=== PATIENT | male | born 1965 | race Caucasian/White ===

== ENCOUNTER 2020-02-13 07:18 | Day surgery (SDC) | payer OTHER, SELFPAY ==
[2020-02-06 14:17] VITALS: BMI 26.1
--- NOTE | 2020-02-12 09:09 | P.CONAN_ITS ---
Documented by User: Gaby Lviingston 02/12/20 09:10 HPI - Anesthesia Eval Consult details Narrative: 54yo M for Colonoscopy [facility], [facility] Past Medical History Medical History Abdominal pain Cervical radiculopathy Hand paresthesia HTN (hypertension) Nausea Social History Social History Advance Directives: No Advance Directives Information Provided: No Advance Directives on File: No Meds Allergies Allergy/AdvReac Type Severity Reaction Status Date / Time No Known Allergies Allergy Verified 02/13/20 07:50 [No Known Allergies*] Exam Exam Date and Time: February 12, 2020 0909 Height,Weight and Vital Signs: Height 5 ft 5 in Weight 71.214 kg Pertinent Lab Results Pertinent Lab Results: Laboratory Tests 09/22/19 09/22/19 11:06 11:06 WBC 7.2 Hgb 14.5 Hct 43.3 Plt Count 141 L D Sodium 140 Potassium 4.0 Chloride 103 BUN 8 L Creatinine 0.98 Assessment and Plan Assessment Anesthesia Assessment: Chart Reviewed Documented by User: Natalee Hernandez 02/13/20 07:56 [facility] Past Medical History Medical History Abdominal pain Cervical radiculopathy Hand paresthesia HTN (hypertension) Nausea Social History Social History Advance Directives: No Advance Directives Information Provided: No Advance Directives on File: No Meds Allergies Allergy/AdvReac Type Severity Reaction Status Date / Time No Known Allergies Allergy Verified 02/13/20 07:50 [No Known Allergies*] Exam Airway Mallampati Class: II TM Dist: >3cm Neck ROM: Full Loose/Missing/Broken Teeth: Upper (8,12,13,14,15,16) Heart: RRR Lungs: CTA
[2020-02-13 07:33] VITALS: BMI 25.7
[2020-02-13 07:35] VITALS: BP 148/121; PULSE 99; RESP 18; TEMP 36.1; O2SAT 97
[2020-02-13 07:45] VITALS: BP 158/98
[2020-02-13] MEDS: Lactated Ringers 1,000 ML 100 ML IVCONT (07:56)
--- NOTE | 2020-02-13 07:56 | HO.ANESPROP2 ---
[facility] Past Medical History Medical History Abdominal pain Cervical radiculopathy Hand paresthesia HTN (hypertension) Nausea Social History Social History Advance Directives: No Advance Directives Information Provided: No Advance Directives on File: No Meds Allergies Allergy/AdvReac Type Severity Reaction Status Date / Time No Known Allergies Allergy Verified 02/13/20 07:50 [No Known Allergies*] Exam Exam Date and Time: February 13, 2020 0756 Height,Weight and Vital Signs: Height 5 ft 5 in Weight 70.307 kg Last Vital Signs Temp 97 F 02/13/20 07:35 Pulse 99 02/13/20 07:35 Resp 18 02/13/20 07:35 BP 158/98 H 02/13/20 07:45 Pulse Ox 97 02/13/20 07:35 Assessment and Plan Assessment Anesthesia Assessment: Anesthesia Plan Discussed and Smoking Cess. Discussed Final Anesthetic Review NPO: Yes ASA Class: II Final Preanesthetic Review: No Changes in Pt Med Stat, Meds/Allgs Chart Reviewed, Consent Obtained/Reviewed and Anes Risks/Benef Reviewed Patient Risk: Low Procedure Risk: Low Anesthetic Plan Anesthetic Plan: MAC: Disposition: Standard PACU
--- NOTE | 2020-02-13 08:26 | MHC.SHP ---
Pre-Procedural Eval Section B Chief Complaint: SCREENING Relevant Family History (Specify if Yes): No Relevant Social History: None Present Medications: see Short Stay Collaborative assessment Medical History: Significant History (back pain, depression) History of Previous Operations: No relevant previous surgery Allergies: Allergies Allergy/AdvReac Type Severity Reaction Status Date / Time No Known Allergies Allergy Verified 02/13/20 07:50 [No Known Allergies*] Review of Systems Sugical H&P ROS: Negative: Constitution, Cardiovascular, Respiratory, Neurological, Psychiatric, Hem-Onc, Allergic/Immunologic, Gastrointestinal, Genitourinary, Musculoskeletal, Integumentary, Endocrine and Eyes/Ears/Nose/Throat Exam Surgical H&P Exam: Normal: HEENT, Normal: Heart, Normal: Lungs, Normal: Extremities, Normal: Abdomen, Normal: Skin and Normal: Neurological Plan Diagnosis/Plan: Unchanged Patient has been examined and remains a candidate for the planned procedure
--- NOTE | 2020-02-13 09:03 | P.OP_ITS ---
Operative Note Operative Note Date of Service: 02/13/20 Narrative: Operative Information Procedure Description: Colonoscopy COLONOSCOPY Instrument: Olympus variable stiffness pediatric scope 190L Colonoscopy Monitoring: Vital signs and clinical assessment, continuous EKG monitoring, Pulse oximetry, Carbon Dioxide monitoring and blood pressure monitoring were done throughout the procedure. Colon withdrawal time was 10 minutes. Procedure: The patient was placed in the left lateral decubitis position and pre-procedure medications were administered. After a digital rectal examination of the ano-rectum, the video colonoscope was inserted into the rectum and advanced through the colon to the cecum/TI. The colonoscope was slowly withdrawn in a retrograde panoramic fashion and the colon mucosa was carefully examined including a retroflexed view of the rectum. Findings and interventions are described below. Procedure Difficulty: Findings: Terminal Ileum-normal Cecum:normal Ascending Colon: normal Transverse Colon -normal, diminutive polyp about 3-4 mm removed with forceps Descending Colon:normal Sigmoid Colon: normal Rectum: Retroflexion with moderate sized internal hemorrhoids, grade I Anorectum - normal Colon preparation: [place] Bowel Preparation Scale Right colon; 2 Transverse colon: 2 Left colon; 3 (0 = Unprepared colon segment with mucosa not seen due to solid stool that cannot be cleared. 1 = Portion of mucosa of the colon segment seen, but other areas of the colon segment not well seen due to staining, residual stool and/or opaque liquid. 2 = Minor amount of residual staining, small fragments of stool and/or opaque liquid, but mucosa of colon segment seen well. 3 = Entire mucosa of colon segment seen well with no residual staining, small fragments of stool or opaque liquid) Impression and Post Procedure Diagnosis: polyp internal hemorrhoids Plan: High fiber diet leaflet Avoid straining at stool, epsom salts and sitz bath, anusol supps or cream prn Repeat Colonoscopy in 5-7 years if adenoma polyp, 10 yrs if hyperplastic or ear lier if clinically indicated Above findings were reviewed with the patient and relevant handouts were provided if indicated.
--- NOTE | 2020-02-13 09:03 | PM.OP ---
Brief Operative Note Date of Service: 02/13/20 Pre-op diagnosis: colon screen Post-op diagnosis: same Procedure: see op note Surgeon: Mario Stuart MD Anesthesia: MAC Estimated blood loss (mL): 0 Condition: stable Disposition: PACU
[2020-02-13 09:07] VITALS: BP 106/62; PULSE 85; RESP 16; TEMP 37.1; O2SAT 92
[2020-02-13 09:23] VITALS: BP 120/69; PULSE 74; RESP 18; TEMP 37.1; O2SAT 99
== END 2020-02-13 09:52 | disposition home or self-care (01) ==
PROVIDERS: PCP Nurse Practitioner Family; Visit Provider Internal Medicine Gastroenterology
PROC: 0DJD8ZZ Inspection of Lower Intestinal Tract, Via Natural or Artificial Opening Endoscopic (ICD-10-PCS; CPT 45378; principal; 2020-02-13 08:30)
DX: Z12.11 Encounter for screening for malignant neoplasm of colon (principal); D12.3 Benign neoplasm of transverse colon; K64.0 First degree hemorrhoids
CPT/HCPCS: 45380; 88305

== ENCOUNTER 2020-08-31 09:32 | Outpatient (REF) | payer OTHER, SELFPAY ==
[2020-08-31 10:29] LABS: Alanine Aminotransferase 13 U/L (0-40); Albumin Level 4.8 g/dL (3.5-5.0); Alkaline Phosphatase 86 U/L (39-117); Anion Gap 13 (12-20); Aspartate Amino Transferase 14 U/L (5-37); Bilirubin Total 1.3 mg/dL (0.0-1.0); Blood Urea Nitrogen 10 mg/dL (9-16); Calcium 9.7 mg/dL (8.4-10.2); Carbon Dioxide 28 mmol/L (22-29); Chloride 106 mmol/L (96-108); Cholesterol 194 mg/dL; Estimated Glomerular Filt Rate > 60; Glucose Random 96 mg/dL (60-115); HDL Cholesterol 69 mg/dL; LDL Cholesterol Calculated 112 mg/dl; Potassium 4.6 mmol/L (3.3-5.1); Sodium 142 mmol/L (135-145); Total Protein 7.5 g/dL (6.5-8.0); Triglycerides 67 mg/dL
[2020-08-31 10:49] LABS: TSH reflex Free T4 0.31 uIU/mL (0.32-4.0)
[2020-08-31 11:40] LABS: Free T4 (Free Thyroxine) 0.94 ng/dL (0.71-1.85)
[2020-09-04 15:12] LABS: Testosterone, Total 455 ng/dL (250-1100)
== END 2020-08-31 09:33 | disposition home or self-care (01) ==
LOC: HO.LAB 09:32
PROVIDERS: PCP Nurse Practitioner Family; Visit Provider Nurse Practitioner Family
DX: I10 Essential (primary) hypertension (principal)
CPT/HCPCS: 36415; 80053; 80061; 84403; 84439; 84443

== ENCOUNTER 2023-02-10 13:52 | Outpatient (AMB) | payer BC, SELFPAY ==
--- NOTE | 2023-02-10 13:57 | MHC.PC.OV ---
Vital Signs 02/10/23 14:02 Weight 168 lb BP 130/80 Blood Pressure Location Rt brachial Position Sitting Pulse 65 Pulse Source Pulse Oximeter Pulse Oximetry (%) 96 Oxygen Delivery Method Room Air Intake Visit Reasons: Annual PE Intake Note: Patient here for physical exam and would like to talk about getting an xray on right knee and right elbow- no known injuries. Allergies No Known Allergies [No Known Allergies*] Allergy (Verified 02/10/23 14:03) Medication List - Last Reconciled 02/10/23 by LENCHO Henderson sildenafil (Viagra) 50 mg PO DAILY PRN 10 days Tobacco use date assessed: 02/10/23 Dental Screening Dental Screen Date: 02/10/23 Did you have a dental visit in the last 12 months?: No Did you have a dental problem in the last 6 months where you did not have access to dental care?: No Was dental information given to patient?: Patient has dentist HPI Annual PE HPI Details Pt is here for a PE. Will order labs. Colon screen is up to date. Due for PSA, will order. Denies dribbling with urination, weak stream, and frequent nocturia. [facility] Medical History (Updated 02/10/23 @ 14:12 by LENCHO Henderson) Cervical neck pain with evidence of disc disease Abdominal pain Nausea Hand paresthesia HTN (hypertension) Cervical radiculopathy Surgical History No pertinent past surgical history Family History Father No problems noted. Mother Diabetes mellitus Brother No problems noted. Sister No problems noted. Social History Housing: Apartment Alcohol intake: former Year quit: 2019 Patient Tobacco Use Status: Former Tobacco user Tobacco use type: Cigarette Years Smoked: 10 years ago e-Cigarette/Vaping Use: Currently Using Current occupational status: employed Cognitive needs: No Hearing needs: No Vision needs: No Questionnaire PHQ-9 Over the last 2 weeks, how often have you been bothered by any of the following problems? 1. Little interest or pleasure in doing things: not at all 2. Feeling down, depressed, or hopeless: not at all 3. Trouble falling or staying asleep, or sleeping too much: not at all 4. Feeling tired or having little energy: not at all 5. Poor appetite or overeating: not at all 6. Feeling bad about yourself - or that you are a failure or have let yourself or your family down: not at all 7. Trouble concentrating on things, such as reading the newspaper or watching television: not at all 8. Moving or speaking so slowly that other people could have noticed. Or the opposite - being so fidgety or restless that you have been moving around a lot more than usual: not at all 9. Thoughts that you would be better off or of hurting yourself in some way: not at all Total score: 0 Depression Screening Interpretation: Negative Depression Screening Done: Yes 29807 - PHQ-9 Billing: Yes Source: Developed by Drs. Arturo Degroot, Alison Vazquez, Jose Madsen and colleagues, with an educational miguel from [employer]. Thrive Questionnaire Date Thrive assessed: 02/10/23 What is your living situation today?: I choose not to answer this question Within the past 12 months, did the food you bought not last and you didn't have the money to get more?: I choose not to answer this question Within the past 12 months, did you worry whether your food would run out before you got money to buy more?: I choose not to answer this question Do you have trouble paying for medicines?: I choose not to answer this question Do you have trouble getting transportation to medical appointments?: I choose not to answer this question Do you have trouble paying your heating and electricity bill?: I choose not to answer this question Do you have trouble taking care of your child, family member or friend?: I choose not to answer this question Do you have trouble with day-to-day activities such as bathing, preparing meals, shopping, managing finances, etc.?: I choose not to answer this question Are you currently unemployed and looking for a job?: I choose not to answer this question Are you interested in more education?: I choose not to answer this question AUDIT C Alcohol Use Questionnaire (AUDIT-C) 1. How often do you have a drink containing alcohol?: Never 3. How often do you have six or more drinks on one occasion?: Never Total Score: 0 Score Reviewed/Action Taken: No ZOHRA-7 AMB Questionnaire ZOHRA-7 Date ZOHRA - 7 assessed: 02/10/23 Feeling nervous, anxious, or on edge: 0 = Not at all Not being able to stop or control worryin = Not at all Worrying too much about different things: 0 = Not at all Trouble relaxin = Not at all Being so restless that it is hard to sit still: 0 = Not at all Becoming easily annoyed or irritable: 0 = Not at all Feeling afraid as if something awful might happen: 0 = Not at all Total ZOHRA-7 score (0-4 normal; 5-9 mild; 10-14 moderate; 15-21 severe): 0 Source: Developed by Drs. Arturo Degroot, Alison Vazquez, Jose Madsen and colleagues, with an educational miguel from [employer]. ZOHRA-7 Assessment Billing ZOHRA-7 Assessment Tool: ZOHRA-7 Assessment 44544 Review of Systems Const Denies chills and Denies fever(s) Eyes Denies blurry vision ENT Denies vertigo, Denies dizziness and Denies sore throat Card Denies chest pain at rest, Denies chest pain with activity, Denies diaphoresis, Denies dyspnea and Denies dyspnea on exertion Resp Denies cough, Denies dyspnea, Denies dyspnea on exertion and Denies wheezing GI Denies abdominal pain, Denies melena, Denies hematochezia, Denies constipation, Denies diarrhea and Denies loose stools Denies hematuria Musc Denies numbness and Denies tingling Skin/Breast Denies lesions Neuro Denies vertigo, Denies dizziness, Denies numbness and Denies tingling Psych Denies anxiety, Denies depression, Denies homicidal ideation, Denies suicidal ideation and Denies other (substance abuse) Aller/Immun Denies wheezing Physical exam (Primary Care) Vital Signs: Last Vital Signs Pulse 65 02/10/23 14:02 BP 130/80 02/10/23 14:02 Pulse Ox 96 02/10/23 14:02 Oxygen Delivery Method Room Air 02/10/23 14:02 Tobacco/Smoking Status: Tobacco use Status Tobacco use date assessed 02/10/23 02/10/23 14:06 Patient Tobacco Use Status Former Tobacco user 02/10/23 13:59 Tobacco use type Cigarette 02/10/23 13:59 e-Cigarette/Vaping Use Currently Using 02/10/23 13:59 PHQ-9: PHQ-9 Score PHQ-9: Total score 0 02/10/23 14:33 Depression Screening Interpretation: Negative Thrive Assessment: Date of Thrive Assessment Date Thrive assessed 02/10/23 02/10/23 14:33 Const General: cooperative Nutritional Appearance: well nourished Orientation/consciousness: patient oriented x3 HENMT Head: Yes normal to inspection, Yes normocephalic and Yes atraumatic Ears: TM's normal bilaterally Eyes General: appearance normal, both eyes and all related structures Alignment and Position: alignment normal and position normal Neck Neck: Yes normal visual inspection and Yes no lymphadenopathy Thyroid: Thyroid normal Resp Effort & Inspection: normal respiratory effort Auscultation: clear to auscultation bilaterally Cardio Rate: regular rate Rhythm: regular rhythm Heart sounds: S1 normal heart sound present, S2 normal heart sound present and no murmurs GI Palpation (GI): Soft to palpation and nontender Auscultation: normal bowel sounds Male General Exam: Yes normal external exam Penis: normal penis Scrotum: scrotum normal, testes descended bilaterally and no inguinal hernias Testes: no testicular mass Skin Rashes: no rashes Neuro General: patient oriented x3, moves all extremities, no focal motor deficits and deep tendon reflexes 2+ bilaterally Romberg Test: Negative Psych Appearance: grossly normal Mental Status: mental status grossly normal Speech and movement: Normal speech and movement present Affect: normal affect Attitude: cooperative Thought process: Normal thought process present Thought content: Normal thought content present Insight: Good insight present (Psych) Judgement: Good judgement present (Psych) Assessment and Plan Assessment & Plan (1) Physical exam: Code(s): Z00.00 - Encounter for general adult medical examination without abnormal findings Plan: Labs ordered (2) Screening for prostate cancer: Code(s): Z12.5 - Encounter for screening for malignant neoplasm of prostate Plan: PSA ordered Plan The patient agreed to the use of a medical policy specialist for this encounter. Scribed for LENCHO Sylvester by poornima Guzman scribe, on 02/10/2023 at 14:15 EST. Orders: Orders TSH reflex Free T4 Today Z00.00 - Encounter for general adult medical examination without abnormal findings Prostate Specific Antigen Scr Today Z12.5 - Encounter for screening for malignant neoplasm of prostate Complete Blood Count Auto Diff Today Z00.00 - Encounter for general adult medical examination without abnormal findings Comprehensive [place]. Panel Fast Today Z00.00 - Encounter for general adult medical examination without abnormal findings UA CC w/rflx Micro + Cult Today Z00.00 - Encounter for general adult medical examination without abnormal findings Lipid Panel Today Z00.00 - Encounter for general adult medical examination without abnormal findings Coding Level of Care Code Est Pt Prev Care 40-64y(79819) Diagnoses Physical exam Z00.00 Screening for prostate cancer Z12.5 Additional Codes ZOHRA-7 Assessment Billing - ZOHRA-7 Assessment Tool: ZOHRA-7 Assessment [id number] ([id number])
[2023-02-10 14:02] VITALS: BP 130/80; PULSE 65; O2SAT 96
== END 2023-02-10 15:24 | disposition home or self-care (01) ==
PROVIDERS: PCP Nurse Practitioner Family; Visit Provider Nurse Practitioner Family
DX: Z00.00 Encounter for general adult medical examination without abnormal findings (principal); Z12.5 Encounter for screening for malignant neoplasm of prostate
CPT/HCPCS: 99396

== ENCOUNTER 2023-03-11 08:37 | Outpatient (REF) | payer BC, SELFPAY ==
[2023-03-11 11:14] LABS: MANUAL DIFF FLAG NO
[2023-03-11 11:31] LABS: Basophils Absolute Auto 0.1 X10*3/uL (0.0-0.2); Basophils Percent Auto 0.6 % (0-2); Eosinophils Absolute Auto 0.2 X10*3/uL (0.0-0.4); Eosinophils Percent Auto 2.1 % (0-4); Hematocrit 45.4 % (42.0-52.0); Hemoglobin 14.9 g/dl (14.0-18.0); Imm Gran Abs Auto 0.05 X10*3/uL (0.00-0.03); Imm Gran Pct Auto 0.6 % (0.0-0.4); Lymphocytes Percent Auto 36.5 % (20-40); Mean Corpuscular HGB Conc 32.8 g/dl (31.0-36.0); Mean Corpuscular Hemoglobin 31.1 pg (27.0-33.0); Mean Corpuscular Volume 94.8 fL (80.0-98.0); Mean Platelet Volume 11.1 fL (9.4-12.4); Monocytes Absolute Auto 0.8 X10*3/uL (0.1-1.2); Monocytes Percent Auto 9.5 % (2-11); Neutrophils Absolute Auto 4.2 x10*3/uL (2.0-8.3); Neutrophils Percent Auto 50.7 % (45-73); Platelet Count 244 X10*3/uL (160-400); Red Blood Count 4.79 X10*6/uL (4.60-5.80); Red Cell Distribution Width 13.1 % (11.0-16.0); White Blood Count 8.2 X10*3/uL (4.8-10.8)
[2023-03-11 11:38] LABS: Appearance Urine Clear; Color Urine Yellow; Glucose Urine UA Negative (Negative); Leukocyte Esterase Urine Negative (Negative); Nitrite Urine Negative (Negative); PH 6.5 (5.0-9.0); Specific Gravity - Urine 1.025 (1.005-1.025); UMIC TRIGGER UACC YES; Urine Blood Negative (Negative); Urine Ketones Negative (Negative); Urine Protein 30 (1+) mg/dL (Neg-Trace)
[2023-03-11 11:42] LABS: Bacteria Urine None Seen (None Seen); RBC Urine 0-2 /HPF (0-2); Squamous Epithelial Cell Urine 0-2 /HPF (0-2); WBC Urine 0-5 /HPF (0-5)
[2023-03-11 12:06] LABS: Prostate Specific Antigen Scr 0.75 ng/mL (<0.05-4.0)
[2023-03-11 12:16] LABS: Alanine Aminotransferase 18 U/L (0-40); Albumin Level 4.4 g/dL (3.5-5.0); Alkaline Phosphatase 94 U/L (39-117); Anion Gap 12 (12-20); Aspartate Amino Transferase 18 U/L (5-37); Bilirubin Total 0.9 mg/dL (0.0-1.0); Blood Urea Nitrogen 11 mg/dL (9-16); Calcium 9.4 mg/dL (8.4-10.2); Carbon Dioxide 29 mmol/L (22-29); Chloride 106 mmol/L (96-108); Cholesterol 207 mg/dL (<200); Estimated Glomerular Filt Rate > 60; Glucose Fasting 90 mg/dL (60-99); HDL Cholesterol 66 mg/dL (>40); LDL Cholesterol Calculated 127 mg/dL (<100); Potassium 4.1 mmol/L (3.3-5.1); Sodium 143 mmol/L (135-145); TSH reflex Free T4 0.56 uIU/mL (0.32-4.0); Total Protein 7.6 g/dL (6.5-8.0); Triglycerides 72 mg/dL (<150)
== END 2023-03-11 08:38 | disposition home or self-care (01) ==
LOC: HO.HMGCLDS 08:37
PROVIDERS: PCP Nurse Practitioner Family; Visit Provider Nurse Practitioner Family
DX: Z00.00 Encounter for general adult medical examination without abnormal findings (principal); Z20.2 Contact with and (suspected) exposure to infections with a predominantly sexual mode of transmission; Z12.5 Encounter for screening for malignant neoplasm of prostate
CPT/HCPCS: 36415; 80053; 80061; 81001; 84153; 84443; 85025

== ENCOUNTER 2024-02-16 15:47 | Outpatient (AMB) | payer BC, SELFPAY ==
[2024-02-16 15:48] VITALS: BP 126/80; PULSE 86; O2SAT 98; BMI 26.6
--- NOTE | 2024-02-16 15:48 | A.OFFPC_ITS ---
Vital Signs 02/16/24 15:48 Height 5 ft 6 in Weight 165 lb BMI 26.6 BP 126/80 Blood Pressure Location Rt brachial Position Sitting Pulse 86 Pulse Source Pulse Oximeter Pulse Oximetry (%) 98 Oxygen Delivery Method Room Air Intake Visit Reasons: annual pe Intake Note: pt is here for annual exam Store Consultant Required: No Accompanied by: Self / Same As Patient Allergies No Known Allergies [No Known Allergies*] Allergy (Verified 02/16/24 16:08) Medication List - Last Reconciled 02/16/24 by LADY Henderson No Known Home Meds Tobacco use date assessed: 02/16/24 Dental Screening Dental Screen Date: 02/16/24 Did you have a dental visit in the last 12 months?: Yes Did you have a dental problem in the last 6 months where you did not have access to dental care?: No Was dental information given to patient?: Patient has dentist HPI annual pe HPI Details History of Present Illness The patient is a 58-year-old male presenting for a routine physical examination and preventive care, including lab work. 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 The pain seems to be widespread and predominantly affects his joints. Although his body is sore, he manages to maintain daily activities. Additionally, he mentions a pinched nerve that has affected his ability to perform exercises such as pull-ups and push- ups. The patient has a smoking history but quit and resumed intermittently in the past. He did not smoke heavily, which may affect his qualification for certain screening programs. He also experiences earwax accumulation, particularly affecting one ear, which caused previous audiological issues. 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 - Lives in [place]; has an apartment pro vided by his employment, allowing for financial savings. - Previously with a history of d los; has no current partner. - Former intermittent smoker; quit multi ple times due to personal relationships. - Refrains from alcohol for the past six years, but continues to smoke legal substances occasionally. - Engages in physical activity through w ork, mentioning that he is constantly moving. - Exercises were limited due to a pinche d nerve. - Plans to undergo blood tests post-holi days to accommodate current dietary habits. Review of Systems - Musculoskeletal: Reports general body soreness. - Genitourinary: Reports minor symptoms of urinary dribbling. - Audiological: Reports previous issues with earwax accumulation causing hearing difficulties. denies any sp, sob, n/v, fevers, chills, edema, urinary issues. Physical Exam General: Cooperative, healthy appearing, comfortable, no acute distress and well developed Orientation: Patient oriented x3 Limitations: No limitations Head: Normal to inspection Ears: Little bit of wax in there, especially in the left ear Nose: Normal external nose present Face and sinus: Normal facial exam Eyes: Appearance normal, both eyes and all related structures Neck: Normal visual inspection and Yes full ROM Respiratory: Normal respiratory effort and able to speak in complete sentences. Clear to auscultation bilaterally Cardiovascular: Regular rate and rhythm. Normal S1 and S2 GI: Normal to inspection. Soft to palpation and nontender Skin: No rashes or lesions noted Neuro: Patient oriented x3, full ROM to all extrem Extremities: Normal to inspection Results Plan - Musculoskeletal pain: Monitor pain and consider interventions as needed. - Preventive care: Proceed with PSA test ing as part of routine screening. - Earwax buildup: Recommend ear cleaning , though the patient declined due to time constraints today. - Smoking history: Monitor for any compl ications related to past smoking. - Consider seasonal adjustments to hydra tion and dietary habits to mitigate fasting-related dizziness during lab tests. Patient was informed and verbally consented to the use of an ambient scribe for clinic note documentation during this visit. Discussion Notes During this visit, we discussed the patient's overall health and wellness, focusing on routine preventive care. I recommended obtaining a PSA lab test to monitor prostate health proactively. We addressed the patient's musculoskeletal pain and explored his work-related physical activities, advising a cautious approach but not mandating any specific interventions. We talked about the patient's past smoking habits and clarified why he did not qualify for low-dose CT lung screening. Earwax accumulation was acknowledged, with patient declining in-office removal due to his work schedule. I advised the patient to fast appropriately before his scheduled lab work to prevent previous fasting-related dizziness. Plans to review results post-holidays were made. Patient Instructions - Obtain PSA blood test after fasting as per instructions provided. - Monitor musculoskeletal discomfort; co nsider consulting if symptoms worsen. - Keep track of dietary habits to improv e fasting experience before lab tests. - Consider [id number] earwax remov al solutions, if needed. - Maintain hydration, especially with se asonal changes. [facility] Medical History Cervical neck pain with evidence of disc disease Abdominal pain Nausea Hand paresthesia HTN (hypertension) Cervical radiculopathy Surgical History No pertinent past surgical history Family History Father No problems noted. Mother Diabetes mellitus Brother No problems noted. Sister No problems noted. Social History Housing: Apartment Alcohol intake: former Year quit: 2019 Patient Tobacco Use Status: Former Tobacco user Tobacco use type: Cigarette Years Smoked: 10 years ago e-Cigarette/Vaping Use: Currently Using Current occupational status: employed Cognitive needs: No Hearing needs: No Vision needs: No Questionnaire PHQ-9 Over the last 2 weeks, how often have you been bothered by any of the following problems? 1. Little interest or pleasure in doing things: not at all 2. Feeling down, depressed, or hopeless: not at all 3. Trouble falling or staying asleep, or sleeping too much: not at all 4. Feeling tired or having little energy: not at all 5. Poor appetite or overeating: not at all 6. Feeling bad about yourself - or that you are a failure or have let yourself or your family down: not at all 7. Trouble concentrating on things, such as reading the newspaper or watching television: not at all 8. Moving or speaking so slowly that other people could have noticed. Or the opposite - being so fidgety or restless that you have been moving around a lot more than usual: not at all 9. Thoughts that you would be better off or of hurting yourself in some way: not at all Total score: 0 Depression Screening Interpretation: Negative Depression Screening Done: Yes 81124 - PHQ-9 Billing: Yes Source: Developed by Drs. Arturo Degroot, Alison Vazquez, Jose Madsen and colleagues, with an educational miguel from [employer]. Thrive Questionnaire Date Thrive assessed: 02/16/24 What is your living situation today?: I choose not to answer this question Within the past 12 months, did the food you bought not last and you didn't have the money to get more?: I choose not to answer this question Within the past 12 months, did you worry whether your food would run out before you got money to buy more?: I choose not to answer this question Do you have trouble paying for medicines?: I choose not to answer this question Do you have trouble getting transportation to medical appointments?: I choose not to answer this question Do you have trouble paying your heating and electricity bill?: I choose not to answer this question Do you have trouble taking care of your child, family member or friend?: I choose not to answer this question Do you have trouble with day-to-day activities such as bathing, preparing meals, shopping, managing finances, etc.?: I choose not to answer this question Are you currently unemployed and looking for a job?: I choose not to answer this question Are you interested in more education?: I choose not to answer this question THRIVE Score: 0 AUDIT C Alcohol Use Questionnaire (AUDIT-C) 1. How often do you have a drink containing alcohol?: Never 3. How often do you have six or more drinks on one occasion?: Never Total Score: 0 Score Reviewed/Action Taken: Yes ZOHRA-7 AMB Questionnaire ZOHRA-7 Date ZOHRA - 7 assessed: 02/16/24 Feeling nervous, anxious, or on edge: 0 = Not at all Not being able to stop or control worryin = Not at all Worrying too much about different things: 0 = Not at all Trouble relaxin = Not at all Being so restless that it is hard to sit still: 0 = Not at all Becoming easily annoyed or irritable: 0 = Not at all Feeling afraid as if something awful might happen: 0 = Not at all Total ZOHRA-7 score (0-4 normal; 5-9 mild; 10-14 moderate; 15-21 severe): 0 Source: Developed by Drs. Arturo Degroot, Alison Vazquez, Jose Madsen and colleagues, with an educational miguel from [employer]. ZOHRA-7 Assessment Billing ZOHRA-7 Assessment Tool: ZOHRA-7 Assessment 50259 Physical exam (Primary Care) Vital Signs: Last Vital Signs Pulse 86 02/16/24 15:48 BP 126/80 02/16/24 15:48 Pulse Ox 98 02/16/24 15:48 Oxygen Delivery Method Room Air 02/16/24 15:48 BMI result Body Mass Index 26.6 Tobacco/Smoking Status: Tobacco use Status Tobacco use date assessed 02/16/24 02/16/24 15:49 Patient Tobacco Use Status Former Tobacco user 02/16/24 15:49 Tobacco use type Cigarette 02/16/24 15:49 e-Cigarette/Vaping Use Currently Using 02/16/24 15:49 PHQ-9: PHQ-9 Score PHQ-9: Total score 0 02/16/24 15:49 Depression Screening Interpretation: Negative Thrive Assessment: Date of Thrive Assessment Date Thrive assessed 02/16/24 02/16/24 15:49 Coding Level of Care Code Est Pt Prev Care 40-64y(34103) Diagnoses Physical exam Z00.00 Screening for prostate cancer Z12.5 Additional Codes ZOHRA-7 Assessment Billing - ZOHRA-7 Assessment Tool: ZOHRA-7 Assessment 90701 ([id number]) PHQ-9 - 28129 - PHQ-9 Billing: Yes ([id number]) Assessment & Plan Assessment & Plan (1) Physical exam: Code(s): Z00.00 - Encounter for general adult medical examination without abnormal findings Category: Medical (2) Screening for prostate cancer: Code(s): Z12.5 - Encounter for screening for malignant neoplasm of prostate Category: Medical Plan . Orders: Orders Comprehensive [place]. Panel Fast Today Z00.00 - Encounter for general adult medical examination without abnormal findings TSH reflex Free T4 Today Z00.00 - Encounter for general adult medical examination without abnormal findings UA CC w/rflx Micro + Cult Today Z00.00 - Encounter for general adult medical examination without abnormal findings Lipid Panel Today Z00.00 - Encounter for general adult medical examination with out abnormal findings Complete Blood Count Auto Diff Today Z00.00 - Encounter for general adult medical examination without abnormal findings Prostate Specific Antigen Scr Today Z12.5 - Encounter for screening for malignant neoplasm of prostate
== END 2024-02-16 16:32 | disposition home or self-care (01) ==
PROVIDERS: PCP Nurse Practitioner Family; Visit Provider Nurse Practitioner Family
DX: Z00.00 Encounter for general adult medical examination without abnormal findings (principal); Z12.5 Encounter for screening for malignant neoplasm of prostate

== ENCOUNTER → 2024-02-16 15:47 | Outpatient (BNVA) | payer BC, SELFPAY | PROVIDERS: PCP Nurse Practitioner Family; Visit Provider Nurse Practitioner Family | DX: Z00.00 Encounter for general adult medical examination without abnormal findings (principal) | CPT/HCPCS: 96127 ==

== ENCOUNTER 2024-03-25 09:13 | Outpatient (REF) | payer BC, SELFPAY ==
[2024-03-25 11:19] LABS: MANUAL DIFF FLAG NO
[2024-03-25 11:25] LABS: Appearance Urine Clear; Color Urine Yellow; Glucose Urine UA Negative (Negative); Leukocyte Esterase Urine Negative (Negative); Nitrite Urine Negative (Negative); PH 6.5 (5.0-9.0); Specific Gravity - Urine <= 1.005 (1.005-1.025); Urine Blood Negative (Negative); Urine Ketones Negative (Negative); Urine Protein Negative (Neg-Trace)
[2024-03-25 11:36] LABS: Basophils Absolute Auto 0.1 X10*3/uL (0.0-0.2); Basophils Percent Auto 0.7 % (0-2); Eosinophils Absolute Auto 0.1 X10*3/uL (0.0-0.4); Eosinophils Percent Auto 0.7 % (0-4); Hematocrit 45.3 % (42.0-52.0); Hemoglobin 15.3 g/dl (14.0-18.0); Imm Gran Abs Auto 0.05 X10*3/uL (0.00-0.03); Imm Gran Pct Auto 0.6 % (0.0-0.4); Lymphocytes Absolute Auto 1.7 X10*3/uL (1.2-4.9); Lymphocytes Percent Auto 19.9 % (20-40); Mean Corpuscular HGB Conc 33.8 g/dl (31.0-36.0); Mean Corpuscular Hemoglobin 31.9 pg (27.0-33.0); Mean Corpuscular Volume 94.4 fL (80.0-98.0); Mean Platelet Volume 10.9 fL (9.4-12.4); Monocytes Absolute Auto 0.7 X10*3/uL (0.1-1.2); Monocytes Percent Auto 8.7 % (2-11); Neutrophils Absolute Auto 5.9 x10*3/uL (2.0-8.3); Neutrophils Percent Auto 69.4 % (45-73); Platelet Count 246 X10*3/uL (160-400); Red Cell Distribution Width 12.9 % (11.0-16.0); White Blood Count 8.5 X10*3/uL (4.8-10.8)
[2024-03-25 11:45] LABS: Alanine Aminotransferase 28 U/L (0-40); Albumin Level 4.7 g/dL (3.5-5.0); Alkaline Phosphatase 85 U/L (39-117); Anion Gap 12 (12-20); Aspartate Amino Transferase 25 U/L (5-37); Bilirubin Total 0.8 mg/dL (0.0-1.0); Blood Urea Nitrogen 9 mg/dL (9-16); Calcium 9.6 mg/dL (8.4-10.2); Carbon Dioxide 27 mmol/L (22-29); Chloride 107 mmol/L (96-108); Cholesterol 213 mg/dL (<200); Estimated Glomerular Filt Rate > 60; Glucose Fasting 109 mg/dL (60-99); HDL Cholesterol 69 mg/dL (>40); LDL Cholesterol Calculated 129 mg/dL (<100); Potassium 3.9 mmol/L (3.3-5.1); Sodium 142 mmol/L (135-145); Total Protein 7.9 g/dL (6.5-8.0); Triglycerides 76 mg/dL (<150)
[2024-03-25 11:57] LABS: Prostate Specific Antigen Scr 0.76 ng/mL (<0.05-4.0)
[2024-03-25 12:04] LABS: TSH reflex Free T4 0.73 uIU/mL (0.32-4.0)
== END 2024-03-25 09:14 | disposition home or self-care (01) ==
LOC: HO.HMGCLDS 09:13
PROVIDERS: PCP Nurse Practitioner Family; Visit Provider Nurse Practitioner Family
DX: Z00.00 Encounter for general adult medical examination without abnormal findings (principal); Z12.5 Encounter for screening for malignant neoplasm of prostate
CPT/HCPCS: 36415; 80053; 80061; 81003; 84153; 84443; 85025

== ENCOUNTER 2025-02-20 15:45 | Outpatient (AMB) | payer BC, SELFPAY ==
--- NOTE | 2025-02-20 16:23 | A.OFFPC_ITS ---
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 Accompanied by: Self / Same As Patient Allergies No Known Allergies (No Known Allergies*) Allergy (Verified 02/20/25 16:27) Medication List - Last Reconciled 02/20/25 by LENCHO Henderson No Known Home Meds Tobacco use date assessed: 02/20/25 Dental Screening Dental Screen Date: 02/20/25 Did you have a dental visit in the last 12 months?: No Did you have a dental problem in the last 6 months where you did not have access to dental care?: No Was dental information given to patient?: Patient has dentist HPI PE HPI Details History of Present Illness The patient is a 59 year old male presenting for a physical exam. He reports doing well overall. His colonoscopy for colon cancer screening is up to date. Health Maintenance - The patient's colonoscopy for colon ca ncer screening is up to date. - The patient is due for labs, including a PSA. Social History Review of Systems - Cardiovascular: Denies chest pain. - Respiratory: Denies shortness of breat h. - Gastrointestinal: Denies abdominal ruchi n, hematochezia, constipation, and diarrhea. - Otologic: Reports cerumen in both ears . - denies any si or hi Physical Exam General: Cooperative, healthy appearing, comfortable, no acute distress and well developed Orientation: Patient oriented x3 Limitations: No limitations Head: Normal to inspection Ears: Hearing grossly normal bilaterally, does have a little bit of serum bilaterally Nose: Normal external nose present Face and sinus: Normal facial exam Eyes: Appearance normal, both eyes and all related structures Neck: Normal visual inspection and Yes full ROM Respiratory: Normal respiratory effort and able to speak in complete sentences. Clear to auscultation bilaterally Cardiovascular: Regular rate and rhythm. Normal S1 and S2 GI: Normal to inspection. Soft to palpation and nontender : Testicles without masses/lesions and no hernias appreciated Skin: No rashes or lesions noted Neuro: Patient oriented x3 Extremities: Normal to inspection Results Plan 1. PE The patient presented for a physical exam. He is due for labs including a PSA, which he will get in the near future. He will follow up in 1 year for his next physical exam. 2. Cerumen Impaction, Bilateral He has some cerumen bilaterally and will flush it out himself. 3. Preventative Care: Colon Cancer Demetriuse jen The patient's colonoscopy for colon cancer screening is up to date. Discussion Notes I saw the patient for a physical exam. He is doing well overall. We noted that he is due for labs, including a PSA, and he will arrange to have these done. His colon cancer screening is up to date. He has bilateral cerumen which he will flush himself. His exam was otherwise benign, and I will see him in one year for a follow-up physical exam. Patient Instructions - Please schedule an appointment to get your lab work, including a PSA test, done in the near future. - You can flush out the wax in your ears yourself at home. - Please return for your next physical e xam in one year. [facility] Medical History Cervical neck pain with evidence of disc disease Abdominal pain Nausea Hand paresthesia HTN (hypertension) Cervical radiculopathy Surgical History No pertinent past surgical history Family History Father No problems noted. Mother Diabetes mellitus Brother No problems noted. Sister No problems noted. Social History Housing: Apartment Alcohol intake: former Year quit: 2019 Patient Tobacco Use Status: Former Tobacco user Tobacco use type: Cigarette Years Smoked: 10 years ago e-Cigarette/Vaping Use: Currently Using Current occupational status: employed Cognitive needs: No Hearing needs: No Vision needs: No Questionnaire PHQ-9 Over the last 2 weeks, how often have you been bothered by any of the following problems? 1. Little interest or pleasure in doing things: not at all 2. Feeling down, depressed, or hopeless: not at all 3. Trouble falling or staying asleep, or sleeping too much: not at all 4. Feeling tired or having little energy: not at all 5. Poor appetite or overeating: not at all 6. Feeling bad about yourself - or that you are a failure or have let yourself or your family down: not at all 7. Trouble concentrating on things, such as reading the newspaper or watching television: not at all 8. Moving or speaking so slowly that other people could have noticed. Or the opposite - being so fidgety or restless that you have been moving around a lot more than usual: not at all 9. Thoughts that you would be better off or of hurting yourself in some way: not at all Total score: 0 Depression Screening Interpretation: Negative Depression Screening Done: Yes 35976 - PHQ-9 Billing: Yes Source: Developed by Drs. Arturo Degroot, Alison Vazquez, Jose Madsen and colleagues, with an educational miguel from [employer]. Thrive Questionnaire Date Thrive assessed: 02/16/24 ZOHRA-7 AMB Questionnaire ZOHRA-7 Date ZOHRA - 7 assessed: 02/20/25 Feeling nervous, anxious, or on edge: 0 = Not at all Not being able to stop or control worryin = Not at all Worrying too much about different things: 0 = Not at all Trouble relaxin = Not at all Being so restless that it is hard to sit still: 0 = Not at all Becoming easily annoyed or irritable: 0 = Not at all Feeling afraid as if something awful might happen: 0 = Not at all Total ZOHRA-7 score (0-4 normal; 5-9 mild; 10-14 moderate; 15-21 severe): 0 Source: Developed by Drs. Arturo Degroot, Alison Vazquez, Jose Madsen and colleagues, with an educational miguel from [employer]. ZOHRA-7 Assessment Billing ZOHRA-7 Assessment Tool: ZOHRA-7 Assessment 80951 Physical exam (Primary Care) Vital Signs: Last Vital Signs Pulse 66 02/20/25 16:24 Resp 16 02/20/25 16:24 BP 130/88 02/20/25 16:24 Pulse Ox 98 02/20/25 16:24 Oxygen Delivery Method Room Air 02/20/25 16:24 Tobacco/Smoking Status: Tobacco use Status Tobacco use date assessed 02/20/25 02/20/25 16:27 Patient Tobacco Use Status Former Tobacco user 02/20/25 16:27 Tobacco use type Cigarette 02/20/25 16:27 e-Cigarette/Vaping Use Currently Using 02/20/25 16:27 PHQ-9: PHQ-9 Score PHQ-9: Total score 0 02/20/25 16:27 Depression Screening Interpretation: Negative Thrive Assessment: Date of Thrive Assessment Date Thrive assessed 02/16/24 02/20/25 16:27 Coding Level of Care Code Est Pt Prev Care 40-64y(23842) Diagnoses Physical exam Z00. Screening for prostate cancer Z12.5 Additional Codes ZOHRA-7 Assessment Billing - ZOHRA-7 Assessment Tool: ZOHRA-7 Assessment 71452 ([id number]) PHQ-9 - 49253 - PHQ-9 Billing: Yes ([id number]) Assessment & Plan Assessment & Plan (1) Physical exam: Code(s): Z00.00 - Encounter for general adult medical examination without abnormal findings Category: Medical (2) Screening for prostate cancer: Code(s): Z12.5 - Encounter for screening for malignant neoplasm of prostate Category: Medical Plan . Orders: Orders Complete Blood Count Auto Diff Today Z00.00 - Encounter for general adult medical examination without abnormal findings TSH reflex Free T4 Today Z00.00 - Encounter for general adult medical examination without abnormal findings Prostate Specific Antigen Scr Today Z12.5 - Encounter for screening for malignant neoplasm of prostate Comprehensive [place]. Panel Fast Today Z00.00 - Encounter for general adult medical examination without abnormal findings UA CC w/rflx Micro + Cult Today Z00.00 - Encounter for general adult medical examination without abnormal findings Lipid Panel Today Z00.00 - Encounter for general adult medical examination without abnormal findings
[2025-02-20 16:24] VITALS: BP 130/88; PULSE 66; RESP 16; O2SAT 98
== END 2025-02-20 16:55 | disposition home or self-care (01) ==
LOC: HO.HMCC 15:46
PROVIDERS: PCP Nurse Practitioner Family; Visit Provider Nurse Practitioner Family
DX: Z00.00 Encounter for general adult medical examination without abnormal findings (principal); Z12.5 Encounter for screening for malignant neoplasm of prostate

== ENCOUNTER → 2025-02-20 15:45 | Outpatient (BNVA) | payer BC, SELFPAY | PROVIDERS: PCP Nurse Practitioner Family; Visit Provider Nurse Practitioner Family | DX: Z00.00 Encounter for general adult medical examination without abnormal findings (principal); H61.23 Impacted cerumen, bilateral | CPT/HCPCS: 96127 ==